=== PATIENT | female | born 1950 | race Caucasian/White ===

== ENCOUNTER → 2016-12-03 | Outpatient (CLI) | payer OTHER ==
[~2016-12-03] MED LIST: ALAVERT10 M1 PO; ALBUTEROL0.09 MG/A2 INH; ALTOCOR40 MG PO; AMOXICILLIN500 MG PO; AMOXIL500 MG PO; ANTIVERT/2525 MG PO; AUGMENTIN 875-875 MG PO; AUGMENTIN 875875 MG PO; BACTRIM DS 8001 TA1 PO; BIAXIN500 MG PO; BUPROPION HCL150 M1 PO; CALCIUM + D 6001 TA1 PO; CEFTIN250 MG PO; CELEXA20 MG PO; CIPRO500 MG PO; DELTASONE5 MG PO; DIFLUCAN150 MG PO; DOES NOT KNOW MEDS; DUONEB 3 MG/3 ML3 M1 INH; DUONEB 3 MG/3 ML3 M1 NEB; FLAGYL500 MG PO; FLEXERIL10 MG PO; HYDR25T PO; KROGER NIC21 MG/24 H T; LOVASTATIN40 MG PO; Lortab 5/500 501 TAB PO; MOTRIN600 MG PO; NEBULIZER; OMEPRAZOLE40 MG PO; OYSTER SHELL 51 EACH PO; PANTOPRAZOLE SO40 MG PO; POTASSIUM20 MEQ PO; PREDNICOT20 MG PO; PREDNISONE20 M1 PO; PREDNISONE5 MG PO; PRILOSEC20 MG PO; RESTORIL30 MG PO; SEROQUEL50 MG PO; TAB-A-VITE1 TA1 PO; TESSALON PERLE100 M1 PO; THE MEDICINE SH10 M1 PO; TRAMADOL HCL50 MG PO; VENTOLIN H0.09 MG/AC IH; VIBRAMYCIN100 MG PO; VICODIN 5/500 505 MG PO; VOLTAREN50 M1 PO; WELLBUTRIN75 MG PO; ZITHROMAX Z PA250 MG PO; ZOLPIDEM10 M1 PO
== END | disposition home or self-care (01) ==
LOC: CT 09:00
DX: R10.31 Right lower quadrant pain (principal); R10.32 Left lower quadrant pain; R11.0 Nausea; Z90.49 Acquired absence of other specified parts of digestive tract; Z90.710 Acquired absence of both cervix and uterus

== ENCOUNTER 2017-01-23 12:06 | Emergency (ER) | payer OTHER ==
[~2017-01-23] VITALS: Wt 64.9 kg
[2017-01-23 12:30] LABS: BASO # 0.1 10*3/uL (0.0-0.1); BASO % 0.9 % (0.0-1.0); EOS # 0.1 10*3/uL (0.0-0.4); EOS % 1.8 % (1.0-4.0); HEMATOCRIT 35.7 % (37.0-47.0); HEMOGLOBIN 11.7 g/dl (12.0-16.0); LYMPH # 2.1 10*3/uL (1.3-4.4); LYMPH % 26.4 % (27.0-41.0); MEAN CELL VOLUME 86.4 fl (81.0-99.0); MEAN CORPUSCULAR HGB 28.3 pg (27.0-31.0); MEAN CORPUSCULAR HGB CONC 32.8 g/dl (33.0-37.0); MEAN PLATELET VOLUME 10.3 fl (9.6-12.3); MONO # 0.8 10*3/uL (0.1-1.0); MONO % 10.4 % (3.0-9.0); NEUT # 4.7 10*3/uL (2.3-7.9); NEUT % 60.2 % (47.0-73.0); PLATELET COUNT AUTOMATED 347 10*3/uL (130-400); RED BLOOD COUNT 4.13 10*6/uL (4.10-5.10); RED CELL DISTRI WIDTH 14.4 % (0-14.5); WHITE BLOOD COUNT 7.8 10*3/uL (4.8-10.8)
[2017-01-23] MEDS ORDERED: NATURE'S BLEND F1 MG PO (12:43)
[2017-01-23] MEDS ORDERED: SYMBICORT1 AER INH (12:45)
[2017-01-23 12:46] LABS: BUN 6 mg/dl (7-24); CARBON DIOXIDE 23 mmol/L (21-32); CHLORIDE 108 mmol/L (98-107); EST GLOM FILT AFRICAN AMERICAN > 60 ml/min; GLUCOSE 83 mg/dL (65-99); POTASSIUM 4.4 mmol/L (3.5-5.1); SODIUM 145 mmol/L (136-145); TROPONIN I < 0.015 ng/ml (<0.045)
[2017-01-23] MEDS ORDERED: PREDNISONE20 M1 PO (14:23)
[2017-01-23] MEDS ORDERED: VIBRAMYCIN100 MG PO (14:23)
== END 2017-01-23 15:04 | disposition home or self-care (01) ==
LOC: ED 12:06
PROVIDERS: Emergency Medicine
DX: J44.1 Chronic obstructive pulmonary disease with (acute) exacerbation (principal); I10 Essential (primary) hypertension; E78.00 Pure hypercholesterolemia, unspecified; Z90.710 Acquired absence of both cervix and uterus; Z98.890 Other specified postprocedural states; Z79.899 Other long term (current) drug therapy; Z88.5 Allergy status to narcotic agent; Z87.891 Personal history of nicotine dependence

== ENCOUNTER → 2017-11-03 | Day surgery (SDC) | payer OTHER ==
[~2017-11-03] VITALS: Ht 157.4 cm; Wt 61.2 kg
[~2017-11-03] MED LIST changes: +DOC-Q-LACE100 MG PO; +NATURE'S BLEND F1 MG PO; +SYMBICORT1 AER INH
--- NOTE | ~2017-11-03 | O ---
[place], [place] OPERATIVE NOTE NAME: LENO DOMINIQUE V [facility] #: [id number] UNIT #: [id number] ROOM: DOCTOR: FRANC BAXTER MD BIRTHDATE: [birth year] DOS: 11/03/2017 PREOPERATIVE DIAGNOSIS: Cataract, left eye. POSTOPERATIVE DIAGNOSIS: Cataract, left eye. OPERATION: Extracapsular cataract extraction by phacoemulsification with posterior chamber intraocular lens implantation, left eye. ANESTHESIA: Monitored standby. OPERATIVE FINDINGS AND PROCEDURE: 2% Xylocaine topical anesthetic gel was applied to the eye in the preop area. The patient was taken to the operating room and prepped and draped in the standard fashion for sterile intraocular surgery. A time out procedure was performed verifying correct patient, correct site and corrects lens with Wali Baxter M.D. The operating microscope was swung into position and the lid speculum was inserted. Using a Ingrid paracentesis blade, a paracentesis was made through clear cornea. Viscoelastic was used to fill the anterior chamber. Using a metal keratome a 2.4 mm self-sealing clear corneal cataract incision was made temporally at the limbus. Using a pre-bent 25 gauge cystotome needle, a standard continuous curvilinear capsulorrhexis was performed. The anterior capsule was removed with forceps. The lens nucleus was hydrodissected and phacoemulsified in the posterior chamber. Cortical material was removed with the irrigation aspiration hand piece and the posterior capsule was then polished with a curet under irrigation. The posterior chamber and capsular bag were filled with viscoelastic. A posterior chamber intraocular lens manufactured by: [employer], Model #[id number], and 21.5 diopters in strength were then inserted into the posterior chamber and within the capsular bag using the lens cartridge and injector system. Viscoelastic was removed using the irrigation aspiration handpiece. The anterior chamber was filled with balanced salt solution through the paracentesis. Both the paracentesis site and cataract incisions were hydrated with BSS and verified to be water-tight and self-sealing. Cefuroxime 1 mg/0.1 mL was injected into the anterior chamber through the paracentesis site. The incision checked to be water-tight using a Weck-Balbina sponge. The integrity of the cataract wound and ocular tension were checked. Lid speculum and drapes were removed. The patient was transferred from the operating room to the recovery room in satisfactory condition. [place], [place] OPERATIVE NOTE NAME: LENO DOMINIQUE V UNIT #: [id number] ROOM: DOCTOR: FRANC BAXTER MD BIRTHDATE: [birth year] FRANC BAXTER MD CM:OPRECORD:OPERATIVE NOTE [id number] FRANC BAXTER MD 11/03/17 1101 interface
[2017-11-03 08:41] VITALS: BP 166/79
[2017-11-03 10:41] VITALS: BP 142/94
[2017-11-03 10:56] VITALS: BP 142/81
[2017-11-03 11:11] VITALS: BP 150/82
== END ==
LOC: SDC 10-29 08:00
DX: H26.9 Unspecified cataract (principal); F41.9 Anxiety disorder, unspecified; K21.9 Gastro-esophageal reflux disease without esophagitis; J44.9 Chronic obstructive pulmonary disease, unspecified; F32.9 Major depressive disorder, single episode, unspecified; M81.0 Age-related osteoporosis without current pathological fracture; I10 Essential (primary) hypertension; E78.00 Pure hypercholesterolemia, unspecified; Z88.5 Allergy status to narcotic agent; Z90.710 Acquired absence of both cervix and uterus; Z87.891 Personal history of nicotine dependence

== ENCOUNTER → 2017-11-24 | Day surgery (SDC) | payer OTHER ==
[~2017-11-24] VITALS: Ht 157.4 cm; Wt 69.4 kg
--- NOTE | ~2017-11-24 | O ---
[place], [place] OPERATIVE NOTE NAME: LENO DOMINIQUE V [facility] #: [id number] UNIT #: [id number] ROOM: DOCTOR: FRANC BAXTER MD BIRTHDATE: [birth year] DOS: 11/24/2017 PREOPERATIVE DIAGNOSIS: Cataract, right eye. POSTOPERATIVE DIAGNOSIS: Cataract, right eye. OPERATION: Extracapsular cataract extraction by phacoemulsification with posterior chamber intraocular lens implantation, right eye. ANESTHESIA: Monitored standby. OPERATIVE FINDINGS AND PROCEDURE: 2% Xylocaine topical anesthetic gel was applied to the eye in the preop area. The patient was taken to the operating room and prepped and draped in the standard fashion for sterile intraocular surgery. A time out procedure was performed verifying correct patient, correct site and corrects lens with Wali Baxter M.D. The operating microscope was swung into position and the lid speculum was inserted. Using a Ingrid paracentesis blade, a paracentesis was made through clear cornea. Viscoelastic was used to fill the anterior chamber. Using a metal keratome a 2.4 mm self-sealing clear corneal cataract incision was made temporally at the limbus. Using a pre-bent 25 gauge cystotome needle, a standard continuous curvilinear capsulorrhexis was performed. The anterior capsule was removed with forceps. The lens nucleus was hydrodissected and phacoemulsified in the posterior chamber. Cortical material was removed with the irrigation aspiration hand piece and the posterior capsule was then polished with a curet under irrigation. The posterior chamber and capsular bag were filled with viscoelastic. A posterior chamber intraocular lens manufactured by: [employer], Model #[id number], and 21.0 diopters in strength were then inserted into the posterior chamber and within the capsular bag using the lens cartridge and injector system. Viscoelastic was removed using the irrigation aspiration handpiece. The anterior chamber was filled with balanced salt solution through the paracentesis. Both the paracentesis site and cataract incisions were hydrated with BSS and verified to be water-tight and self-sealing. Cefuroxime 1 mg/0.1 mL was injected into the anterior chamber through the paracentesis site. The incision checked to be water-tight using a Weck-Balbina sponge. The integrity of the cataract wound and ocular tension were checked. Lid speculum and drapes were removed. The patient was transferred from the operating room to the recovery room in satisfactory condition. [place], [place] OPERATIVE NOTE NAME: LENO DOMINIQUE V UNIT #: [id number] ROOM: DOCTOR: FRANC BAXTER MD BIRTHDATE: [birth year] FRANC BAXTER MD CM:OPRECORD:OPERATIVE NOTE 1422 1800 FRANC BAXTER MD 11/24/17 1758 interface
[2017-11-24 14:18] VITALS: BP 163/56
[2017-11-24 14:32] VITALS: BP 142/73
[2017-11-24 14:47] VITALS: BP 163/70
== END | disposition home or self-care (01) ==
LOC: SDC 11-18 13:15
DX: H25.811 Combined forms of age-related cataract, right eye (principal); I10 Essential (primary) hypertension; J44.9 Chronic obstructive pulmonary disease, unspecified; K21.9 Gastro-esophageal reflux disease without esophagitis; F41.9 Anxiety disorder, unspecified; Z87.891 Personal history of nicotine dependence; F32.9 Major depressive disorder, single episode, unspecified; Z90.710 Acquired absence of both cervix and uterus; Z96.641 Presence of right artificial hip joint; Z88.5 Allergy status to narcotic agent; Z98.890 Other specified postprocedural states

== ENCOUNTER 2018-02-27 07:52 | Inpatient (IN) | payer OTHER ==
[2018-02-27] VITALS (7 sets, daily range): BP systolic 130–152; BP diastolic 50–78
[~2018-02-27] VITALS: Ht 154.9 cm; Wt 71.8 kg
--- NOTE | ~2018-02-27 | WRIGHTHP ---
[place], [place] PATIENT HISTORY AND PHYSICAL EXAM NAME: LENO DOMINIQUE V [facility] #: [id number] UNIT #: [id number] ROOM: 425 DOCTOR: RUY SAENZ MD BIRTHDATE: [birth year] DOS: 02/27/2018 HISTORY OF PRESENT ILLNESS: The patient is 67 years old. The patient is very well known to us, comes in with complaints of left-sided chest pain and shortness of breath. The patient denies having any fever, chills, has had cough which is productive of scant amounts of sputum. Does not have any abdominal pain, nausea, any emesis. PAST MEDICAL HISTORY: Significant for: 1. COPD with history of hospitalization for exacerbation last in 2016 with pneumonia and respiratory failure. 2. History of nicotine abuse, but has not smoked for a year now. 3. Benign hypertension. 4. Gastroesophageal reflux disease. 5. Mixed hyperlipidemia. 6. Major depression. 7. History of renal calculus. MEDICATIONS: She is on are breathing treatments, bupropion, calcium, Colace, hydrochlorothiazide, loratadine, lovastatin, Protonix, potassium, Seroquel. SOCIAL HISTORY: History of heavy smoking, she has not smoked for about a year. PHYSICAL EXAMINATION: VITAL SIGNS: Blood pressure is 134/70, pulse of 98, respirations 20, temperature 97.9. LUNGS: Diminished breath sounds. HEART: Regular. ABDOMEN: Obese, soft. EXTREMITIES: Without any edema. ASSESSMENT AND PLAN: 1. Precordial pain, ruled out for myocardial infarction. Echocardiogram. Cardiology consultation will be obtained. The patient has refused to do a stress test in the past. 2. Acute exacerbation of chronic obstructive pulmonary disease, on IV steroids and antibiotics. 3. Benign hypertension, controlled. Echocardiogram is ordered. Check LV function. [place], [place] PATIENT HISTORY AND PHYSICAL EXAM NAME: LENO DOMINIQUE V [facility] #: [id number] UNIT #: [id number] ROOM: 425 DOCTOR: RUY SAENZ MD BIRTHDATE: [birth year] RUY SAENZ MD CM:HISPHYS:PATIENT HISTORY AND PHYSICAL EXAMINATION 0908 [id number] RUY SAENZ MD 02/28/18 1026 interface
--- NOTE | ~2018-02-27 | CON ---
[place], [place] REPORT OF CONSULTATION [id number] UN[facility] #: [id number] ROOM: 425 DOCTOR: AMI ENGEL MD BIRTHDATE: [birth year] DOS: 02/28/2018 HISTORY OF PRESENT ILLNESS: This is a 67-year-old -[place] woman with a history of essential hypertension, COPD, morbid obesity. She has GERD and dyslipidemia and has had major depression as well as renal stones. She quit smoking many years ago and some family members do have coronary artery disease, but she was not able to give me details. She woke up yesterday morning with the left pectoralis, left shoulder and proximal left arm pain that was very annoying. She could not handle it and she came to the Emergency Department by 12:00 i.e., 6 hours after she woke up, the pain pretty much eased up and disappeared. She has not had such pains previously. There was no accompanying nausea, sweating, shortness of breath, palpitation, dizziness or loss of consciousness. She had moved 50 bottles of water using her left hand the day before. She has not had such symptoms previously and is a reasonably active lady. No PND, orthopnea, or swelling of the lower extremities, but she does have exertional shortness of breath. HOME MEDICATIONS: Include Seroquel, bupropion, loratadine, hydrochlorothiazide, Protonix, potassium supplement, calcium and Colace. PHYSICAL EXAMINATION: GENERAL: The patient who is very pleasant, alert. She is comfortable. Her grandsons are in the room. Her complexion is fine. VITAL SIGNS: Pulse is regular at 84 beats per minute, blood pressure 134/70. NECK: JVP is normal. AJR is negative. There is no carotid bruit. HEART: There is no cardiomegaly. Auscultation of the heart reveals no murmurs, rubs, or extra heart sounds, good pedal pulses and no edema in the lower extremities. RESPIRATORY: She is not tachypneic. Percussion note is normal. Auscultation reveals a mildly reduced breath sounds with some rhonchi, more so in the left lower zone. ECGs have shown normal sinus rhythm and a normal pattern. Troponin I levels are also normal. IMPRESSION: She woke up with acute left shoulder and arm and left pectoralis area pain. I think this was probably muscular from excessive use from the day before. She no longer has the symptoms that she has walked in the room without any symptoms. From cardiac standpoint, she may be discharged home. Because of the risk factors, please consider doing Lexiscan or exercise stress Cardiolite as outpatient. I thank you on behalf of Dr. Arndt for this consult. [place], [place] REPORT OF CONSULTATION NAME: TRIPLENO V UNIT #: [id number] ROOM: 425 DOCTOR: TORO MILLER,AMI BIRTHDATE: [birth year] AMI ENGEL MD CM:CONSTR:REPORT OF CONSULTATION 1132 02/28/18 2244 interface
--- NOTE | ~2018-02-27 | PR ---
[place], [place] PROGRESS NOTE NAME: LENO DOMINIQUE V [facility] #: [id number] UNIT #: [id number] ROOM: 425 DOCTOR: RUY SAENZ MD BIRTHDATE: [birth year] DOS: SUBJECTIVE: The patient is doing fine, complaints this morning. OBJECTIVE: VITAL SIGNS: Graphic trend shows blood pressure 136/67, pulse of 89, respirations 16, temperature 97.9. LUNGS: Diminished breath sounds, clear except for a few wheezes here and there, but overall is much improved since yesterday. HEART: Regular. ABDOMEN: Obese, soft. EXTREMITIES: Without any edema. ASSESSMENT AND PLAN: 1. Acute exacerbation of chronic obstructive pulmonary disease, improving. 2. Precordial chest pain with the echocardiogram showing normal LV function. She ruled out for OK and did undergo a stress test today that comes back normal, the patient should be able to go home today. We will start discharge planning. RUY SAENZ MD CM:PNTRANS 0842 [id number] RUY SAENZ MD 03/01/18 1420 interface
--- NOTE | ~2018-02-27 | DS ---
[place], [place] DISCHARGE SUMMARY NAME: LENO DOMINIQUE V [facility] #: [id number] UNIT #: [id number] ROOM: 425 DOCTOR: RUY SAENZ MD BIRTHDATE: [birth year] DOS: 03/01/2018 DIAGNOSES: 1. Precordial chest pain. 2. Acute exacerbation of chronic obstructive pulmonary disease. 3. Benign hypertension. HOSPITAL COURSE: This patient is very well known to us, comes in with complaints of shortness of breath and chest pain for the last few days after being evaluated in the ER. She was admitted. After admission, AK protocol was done, which came back negative. Cardiology consultation was obtained. The patient had an echocardiogram and a stress test was performed. The stress test came back negative. The patient also was placed on steroids and antibiotics for acute exacerbation of COPD. The patient improved and was no longer having any shortness of breath or chest pain. Echocardiogram showed normal LV function and stress test did not show any perfusion defects, so the patient was discharged home to be followed up as an outpatient on tapering dose of steroids and antibiotics. RUY SAENZ MD CM:HERSON 0729 [id number] RUY SAENZ MD 03/25/18 1357 interface
--- NOTE | ~2018-02-27 | ST ---
[place], [place] EXERCISE STRESS TEST REPORT NAME: LENO DOMINIQUE V UNIT #: [id number] ROOM: 425 DOCTOR: ANDRE JOHNSON MD BIRTHDATE: [birth year] DOS: 03/01/2018 LEXISCAN PORTION OF THE LEXISCAN CARDIOLITE Baseline cardiogram, sinus rhythm with nonspecific ST-T changes, 0.4 mg Lexiscan, duration of 10 seconds. With Lexiscan, no new EKG changes. No chest discomfort. Blood pressure and heart rate responses normal. Nuclear images will be reported separately. ANDRE JOHNSON MD CM:STRESS:EXERCISE STRESS TEST REPORT 0704 1113 ANDRE JOHNSON MD
[2018-02-27 08:09] LABS: BASO # 0.1 10*3/uL (0.0-0.1); BASO % 0.6 % (0.0-1.0); EOS # 0.1 10*3/uL (0.0-0.4); EOS % 1.3 % (1.0-4.0); HEMATOCRIT 36.6 % (37.0-47.0); HEMOGLOBIN 11.8 g/dl (12.0-16.0); LYMPH # 1.6 10*3/uL (1.3-4.4); LYMPH % 15.7 % (27.0-41.0); MEAN CELL VOLUME 91.5 fl (81.0-99.0); MEAN CORPUSCULAR HGB 29.5 pg (27.0-31.0); MEAN CORPUSCULAR HGB CONC 32.2 g/dl (33.0-37.0); MEAN PLATELET VOLUME 10.1 fl (9.6-12.3); MONO # 0.9 10*3/uL (0.1-1.0); MONO % 8.7 % (3.0-9.0); NEUT # 7.4 10*3/uL (2.3-7.9); NEUT % 73.3 % (47.0-73.0); PLATELET COUNT AUTOMATED 302 10*3/uL (130-400); RED CELL DISTRI WIDTH 13.2 % (0-14.5); WHITE BLOOD COUNT 10.1 10*3/uL (4.8-10.8)
[2018-02-27] MEDS ORDERED: LOVASTATIN40 MG PO (08:14)
[2018-02-27] MEDS ORDERED: HYDR25T PO (08:14)
[2018-02-27] MEDS ORDERED: SEROQUEL50 MG PO (08:14)
[2018-02-27] MEDS ORDERED: POTASSIUM CHLO20 MEQ PO (08:14)
[2018-02-27] MEDS ORDERED: BUPROPION HCL300 MG PO (08:15)
[2018-02-27] MEDS ORDERED: OYSTER SHELL 51 EACH PO (08:16)
[2018-02-27] MEDS ORDERED: THE MEDICINE SH PO (08:17)
[2018-02-27] MEDS ORDERED: SYMB80 INH (08:17)
[2018-02-27 08:18] LABS: ACT PARTIAL THROMBO TIME 22.5 SECONDS (20.8-31.5); INTERNATIONAL NORM RATIO 0.9 (2.0-3.5)
[2018-02-27] MEDS ORDERED: DOC-Q-LACE100 MG PO (08:18)
[2018-02-27] MEDS ORDERED: PROTONIX40 MG PO (08:18)
[2018-02-27] MEDS ORDERED: DUONEB 3 MG/3 ML3 M1 INH (08:19)
[2018-02-27 08:25] LABS: ALBUMIN 3.7 gm/dl (3.1-4.5); ALKALINE PHOSPHATASE 78 U/L (45-117); BUN 12 mg/dl (7-24); CHLORIDE 104 mmol/L (98-107); CREATININE 1.09 mg/dL (0.55-1.02); POTASSIUM 3.9 mmol/L (3.5-5.1); SGOT/AST 6 IU/L (3-35); SGPT/ALT 16 U/L (12-78); SODIUM 140 mmol/L (136-145); TOTAL PROTEIN 7.3 gm/dL (6.4-8.2)
[2018-02-27 08:30] LABS: TROPONIN I < 0.015 ng/ml (<0.045)
[2018-02-28] VITALS: BP 125/50
[2018-02-28 08:00] VITALS: BP 134/70
[2018-02-28 12:00] VITALS: BP 128/64
[2018-02-28 16:00] VITALS: BP 134/60
[2018-02-28 20:00] VITALS: BP 122/90
[2018-03-01] VITALS: BP 136/67
[2018-03-01 08:00] VITALS: BP 126/71
[2018-03-01] MEDS ORDERED: CIPRO500 MG PO (08:43)
[2018-03-01] MEDS ORDERED: PREDNISONE5 MG PO (08:43)
[2018-03-01 12:00] VITALS: BP 130/60
== END 2018-03-01 15:47 | disposition home or self-care (01) | DRG 192 ==
LOC: ED 07:52 → EDHOLD 08:41 → 4E 08:41
PROVIDERS: Emergency Medicine
PROC: 4A02XM4 Measurement of Cardiac Total Activity, External Approach (ICD-10-PCS; principal; 2018-03-01)
PROC: 3E073KZ Introduction of Other Diagnostic Substance into Coronary Artery, Percutaneous Approach (ICD-10-PCS; 2018-03-01)
DX: J44.1 Chronic obstructive pulmonary disease with (acute) exacerbation (principal); L89.212 Pressure ulcer of right hip, stage 2; R07.89 Other chest pain; I10 Essential (primary) hypertension; K21.9 Gastro-esophageal reflux disease without esophagitis; E78.2 Mixed hyperlipidemia; F32.9 Major depressive disorder, single episode, unspecified; E78.00 Pure hypercholesterolemia, unspecified; Z88.5 Allergy status to narcotic agent; Z79.899 Other long term (current) drug therapy; Z90.710 Acquired absence of both cervix and uterus; Z98.41 Cataract extraction status, right eye; Z87.442 Personal history of urinary calculi; Z87.891 Personal history of nicotine dependence

== ENCOUNTER → 2018-04-28 | Outpatient (CLI) | payer OTHER ==
[~2018-04-28] MED LIST changes: +BUPROPION HCL300 MG PO; +POTASSIUM CHLO20 MEQ PO; +PROTONIX40 MG PO; +SYMB80 INH; +THE MEDICINE SH PO
== END | disposition home or self-care (01) ==
LOC: US 09:41
DX: Z12.31 Encounter for screening mammogram for malignant neoplasm of breast (principal); N28.89 Other specified disorders of kidney and ureter; G24.9 Dystonia, unspecified; Z90.49 Acquired absence of other specified parts of digestive tract

== ENCOUNTER → 2018-05-25 | Day surgery (SDC) | payer OTHER ==
--- NOTE | ~2018-05-25 | O ---
[place], [place] OPERATIVE NOTE NAME: LENO DOMINIQUE V UNIT #: [id number] ROOM: DOCTOR: ROSE MARIE ENGLISH MD BIRTHDATE: [birth year] DOS: 05/25/2018 INDICATIONS: This is a 67-year-old patient with chief complaint of abdominal pain, undergoing investigation. PAST MEDICAL HISTORY: Depression, hypercholesterolemia, gastritis, and hypertension. PAST SURGICAL HISTORY: Mesh, D and C, right hip; and hysterectomy. ALLERGIES: To no known medications. SOCIAL HISTORY: She smoked up to 4 months ago, stopped alcohol one year ago, which was a 6 pack a day. FAMILY HISTORY: Noncontributory. PROCEDURE: Today's procedure part of investigation is panendoscopy plus biopsy. PREMEDICATION: Propofol. SCOPE: Olympus forward-viewing gastroscope Q10 video. REPORT: After putting the patient in left lateral position and application of lubricant to the scope, the scope was introduced. Thereafter, under direct visualization, advanced through the length of esophagus without difficulty. Hiatal hernia was appreciated, which is about 2 cm. Gastritis was noticed. Antral biopsy obtained. Duodenal bulb, second and third part within normal limits. Photographic series of the antrum obtained as well as hiatal hernia. GI reflexion of the scope reveals cardia to be benign. Air was suctioned out. The patient was extubated and tolerated the procedure well. IMPRESSION AND PLAN: Hiatal hernia, gastritis secondary to multiple medications including prednisone. On the other hand, the patient is already on Protonix. I have advised her to use Gaviscon 1 tablet at bedtime and elevation of the head of the bed. I have reviewed the CT scan of the abdomen and pelvis, which belongs to 2017 and multi-renal lithiasis is of concern. Also, she has a ventral hernia on the physical examination, which does not require further therapy or repair, but the renal lithiasis issues has to be deferred to Urology service. I thank you very much indeed for your kind referral. [place], [place] OPERATIVE NOTE NAME: LENO DOMINIQUE V UNIT #: [id number] ROOM: DOCTOR: ROSE MARIE ENGLISH MD BIRTHDATE: [birth year] ROSE MARIE ENGLISH MD CM:AMANDAORD:OPERATIVE NOTE 0848 5 ROSE MARIE ENGLISH MD 05/25/18 0904 interface
[2018-05-25 08:15] VITALS: BP 145/76
[2018-05-25 08:45] VITALS: BP 157/125
[2018-05-25 09:00] VITALS: BP 148/76
[2018-05-25 09:22] VITALS: BP 141/68
[2018-05-25 09:24] VITALS: BP 138/68
== END | disposition home or self-care (01) ==
LOC: SDC 05-24 08:00
DX: K29.50 Unspecified chronic gastritis without bleeding (principal); K44.9 Diaphragmatic hernia without obstruction or gangrene; I10 Essential (primary) hypertension; E78.5 Hyperlipidemia, unspecified; K21.9 Gastro-esophageal reflux disease without esophagitis; M81.0 Age-related osteoporosis without current pathological fracture; H40.9 Unspecified glaucoma; J44.9 Chronic obstructive pulmonary disease, unspecified; F41.8 Other specified anxiety disorders; Z90.710 Acquired absence of both cervix and uterus; Z88.5 Allergy status to narcotic agent; Z98.41 Cataract extraction status, right eye; Z87.891 Personal history of nicotine dependence; Z87.11 Personal history of peptic ulcer disease; Z79.899 Other long term (current) drug therapy; Z96.641 Presence of right artificial hip joint

== ENCOUNTER 2018-08-15 16:28 | Inpatient (IN) | payer OTHER ==
[~2018-08-15] VITALS: Ht 157.5 cm; Wt 66.9 kg
--- NOTE | ~2018-08-15 | WRIGHTHP ---
[place], [place] PATIENT HISTORY AND PHYSICAL EXAM NAME: LENO DOMINIQUE V [facility] #: [id number] UNIT #: [id number] ROOM: 404 DOCTOR: RUY SAENZ MD BIRTHDATE: [birth year] DOS: HISTORY OF PRESENT ILLNESS: This patient is very well known to us, 67 years old who comes in with complaints of chest pain and abdominal pain. The patient states that she has had this cold-like sensation across the chest for the last couple of days and this appeared to be slightly heavy in nature and so decided to come into the Emergency Room. She also has not had a bowel movement for days and has been constipated and had some abdominal discomfort also. She denies having any fever, chills, cough, shortness of breath. Does not have any urinary symptoms. No diarrhea. PAST MEDICAL HISTORY: Significant for: 1. Chest pain with hospitalization earlier this year with negative stress test. 2. Benign hypertension. 3. History of nicotine abuse. 4. Mixed hyperlipidemia. 5. Chronic obstructive pulmonary disease. 6. Gastroesophageal reflux disease. 7. Major depression. MEDICATIONS: She is currently on are Symbicort 80, breathing treatments with DuoNeb q. 4, bupropion 300 mg daily, calcium 500 t.i.d., Colace 100 b.i.d., hydrochlorothiazide 25 daily, loratadine 10 daily, lovastatin 40 daily, Protonix 40 daily, potassium 20 daily. SOCIAL HISTORY: History of smoking, quit smoking about 2 years ago. Denies using any alcohol. Lives at home. FAMILY HISTORY: Significant for her brother who just after an [place]. PHYSICAL EXAMINATION: GENERAL: She is awake and alert and oriented, in no major distress this morning. VITAL SIGNS: Graphic trend shows pressure 140/70, pulse of 76, respirations 14, afebrile. LUNGS: Clear. HEART: Regular. ABDOMEN: Obese, soft, nontender. EXTREMITIES: Without any edema. LABORATORY DATA: EKG shows nonspecific ST-T wave changes. 3 sets of troponins done so far have come back negative. ASSESSMENT AND PLAN: 1. Precordial chest pain in a patient with multiple risk factors, which need to be further evaluated. She had a negative stress test early this year, so we will schedule her for a cardiac catheterization. Dr. Arndt has been consulted and the patient has agreed. 2. Abdominal discomfort with constipation has resolved after the patient was [place], [place] PATIENT HISTORY AND PHYSICAL EXAM NAME: LENO DOMINIQUE V [facility] #: [id number] UNIT #: [id number] ROOM: [facility] DOCTOR: RUY SAENZ MD BIRTHDATE: [birth year] started on Colace and MiraLax. She had a bowel movement this morning. No further workup will be done for that. 3. Benign hypertension, controlled. 4. Mixed hyperlipidemia, on medications. We will continue same. RUY SAENZ MD CM:HISPHYS:PATIENT HISTORY AND PHYSICAL EXAMINATION 6 7 RUY SAENZ MD 08/16/18847 interface
--- NOTE | ~2018-08-15 | CON ---
[place], [place] REPORT OF CONSULTATION [id number] #: [id number] ROOM: 404 DOCTOR: ANDRE JOHNSON MD BIRTHDATE: [birth year] DOS: 08/16/2018 REASON FOR CONSULTATION: Chest discomfort. HISTORY OF PRESENT ILLNESS: A 67-year-old female who had done a stress test in February was normal without any ischemia, normal ejection fraction, admitted to the Emergency Department. She had not had a bowel movement for quite some time. Had some chest discomfort 12/28. No acute EKG changes suggestion of myocardial injury or infarction. As mentioned, she had a lot of GI problems. PAST MEDICAL HISTORY: Hypertension and hyperlipidemia. MEDICATIONS: Hydrochlorothiazide, lovastatin, and pantoprazole. ALLERGIES: CODEINE. MEDICATIONS: She is on prednisone and ciprofloxacin. PAST SURGICAL HISTORY: Hysterectomy, cataract surgery and hernia repair. SOCIAL HISTORY: Denies any alcohol or tobacco abuse. REVIEW OF SYSTEMS: A 6-8 systems reviewed. She did have some chest discomfort, did have nausea and abdominal bloating. No shortness of breath. PHYSICAL EXAMINATION: GENERAL: The patient is alert, oriented x 3. HEENT: Unremarkable. NECK: Supple, no JVD. LUNGS: Diminished breath sound. HEART: Sounds are regular. ABDOMEN: Soft, nontender. NEUROLOGIC: Stable. IMAGING STUDIES: EKG shows sinus rhythm with nonspecific ST-T changes. LABORATORY DATA: Shows troponins have been negative. Electrolytes are normal. Potassium was significantly low at 2.8, which was supplemented. Sodium 135, creatinine is 0.9, hemoglobin 11.8, hematocrit 34.9. IMPRESSION: The patient with atypical chest discomfort, chest pressure, hypertension, dyslipidemia. RECOMMENDATIONS: Agree with the present medication. Recent stress test was normal, maximize the medications. Add isosorbide to the present medicine. If she continues to be symptomatic, we have no other choice other than proceeding with a catheterization. [place], [place] REPORT OF CONSULTATION [facility] [id number] #: [id number] ROOM: 404 DOCTOR: ANDRE JOHNSON MD BIRTHDATE: [birth year] ANDRE JOHNSON MD CM:CONSTR:REPORT OF CONSULTATION 0711 08/16/18 0753 interface
--- NOTE | ~2018-08-15 | EKG ---
[place], [place] ELECTROCARDIOGRAM REPORT NAME: LENO DOMINIQUE V UNIT #: [id number] ROOM: 404 DOCTOR: KIRK DRAFT REPORT BIRTHDATE: [birth year] [facility] Test Date: 2018-08-15 Test Time: 17:35:30 Pat Name: LENO DOMINIQUE Department: Room: 404 Gender: F Chief Radiation Therapist: Rhoda Butts : 1950 Requested By: MICHAEL BRAVO Order Number: [id number] Reading MD: Martinez Ambriz MD Measurements Intervals Dearing Rate: 74 P: 63 SC: 169 QRS: 36 QRSD: 94 T: 41 QT: 406 QTc: 451 Interpretive Statements Sinus rhythm Minimal ST depression, anterior leads Electronically Signed On 08-18-2018 3:12:43 PST by Martinez Ambriz MD CM:EKGRPT:ELECTROCARDIOGRAM REPORT 1735 0312 MICHAEL BRADLEY DRAFT REPORT MICHAEL DSOUZA
[2018-08-15 16:29] VITALS: BP 127/52
[2018-08-15 17:36] LABS: BILIRUBIN NEGATIVE (NEGATIVE); BLOOD NEGATIVE (NEGATIVE); CLARITY CLEAR (CLEAR); COLOR YELLOW (YELLOW); GLUCOSE NEGATIVE (NEGATIVE); KETONE NEGATIVE (NEGATIVE); LEUKO ESTERASE NEGATIVE (NEGATIVE); NITRITE NEGATIVE (NEGATIVE); UROBILINOGEN 0.2 E.U./dl (0.2-1.0)
[2018-08-15 17:40] LABS: BASO # 0.1 10*3/uL (0.0-0.1); BASO % 0.7 % (0.0-1.0); EOS # 0.1 10*3/uL (0.0-0.4); EOS % 1.1 % (1.0-4.0); HEMATOCRIT 34.4 % (37.0-47.0); HEMOGLOBIN 11.8 g/dl (12.0-16.0); LYMPH # 2.2 10*3/uL (1.3-4.4); LYMPH % 24.6 % (27.0-41.0); MEAN CELL VOLUME 84.1 fl (81.0-99.0); MEAN CORPUSCULAR HGB 28.9 pg (27.0-31.0); MEAN CORPUSCULAR HGB CONC 34.3 g/dl (33.0-37.0); MEAN PLATELET VOLUME 9.9 fl (9.6-12.3); MONO # 0.7 10*3/uL (0.1-1.0); MONO % 7.5 % (3.0-9.0); NEUT # 5.9 10*3/uL (2.3-7.9); NEUT % 65.8 % (47.0-73.0); PLATELET COUNT AUTOMATED 312 10*3/uL (130-400); RED BLOOD COUNT 4.09 10*6/uL (4.10-5.10); RED CELL DISTRI WIDTH 14.1 % (0-14.5)
[2018-08-15 17:51] LABS: ACT PARTIAL THROMBO TIME 22.9 SECONDS (20.8-31.5)
[2018-08-15 17:52] LABS: RBC 0-2 rbc/hpf (0-2)
[2018-08-15 17:55] LABS: ALBUMIN 3.6 gm/dl (3.1-4.5); ALKALINE PHOSPHATASE 74 U/L (45-117); BUN 11 mg/dl (7-24); CHLORIDE 99 mmol/L (98-107); CREATININE 0.96 mg/dL (0.55-1.02); LIPASE 99 U/L (73-393); POTASSIUM 2.8 mmol/L (3.5-5.1); SGOT/AST 12 IU/L (3-35); SGPT/ALT 13 U/L (12-78); SODIUM 135 mmol/L (136-145); TOTAL PROTEIN 7.2 gm/dL (6.4-8.2); TROPONIN I < 0.015 ng/ml (<0.045)
[2018-08-15 18:45] VITALS: BP 140/78
[2018-08-15 19:29] VITALS: BP 132/70
[2018-08-15 19:57] VITALS: BP 128/71
[2018-08-15 20:12] VITALS: BP 93/65
[2018-08-16] VITALS: BP 120/66
[2018-08-16 08:00] VITALS: BP 112/80
[2018-08-16 09:30] LABS: BUN 9 mg/dl (7-24); CHLORIDE 109 mmol/L (98-107); CREATININE 0.82 mg/dL (0.55-1.02); POTASSIUM 3.4 mmol/L (3.5-5.1); SODIUM 142 mmol/L (136-145)
[2018-08-16 12:00] VITALS: BP 109/82
[2018-08-16 16:00] VITALS: BP 109/72
[2018-08-16 20:00] VITALS: BP 141/64
[2018-08-17] VITALS: BP 116/46
[2018-08-17 04:00] VITALS: BP 131/67
== END 2018-08-17 05:50 | disposition other institution (70) | DRG 641 ==
LOC: ED 16:28 → 4E 18:53 → EDHOLD 18:53 → 4E 19:49
PROVIDERS: Internal Medicine; Physician Assistant
DX: E87.1 Hypo-osmolality and hyponatremia (principal); I25.10 Atherosclerotic heart disease of native coronary artery without angina pectoris; K59.00 Constipation, unspecified; I10 Essential (primary) hypertension; E78.2 Mixed hyperlipidemia; J44.9 Chronic obstructive pulmonary disease, unspecified; K21.9 Gastro-esophageal reflux disease without esophagitis; F32.9 Major depressive disorder, single episode, unspecified; R07.89 Other chest pain; E87.6 Hypokalemia; Z87.891 Personal history of nicotine dependence; Z88.5 Allergy status to narcotic agent; Z90.710 Acquired absence of both cervix and uterus

== ENCOUNTER 2018-10-24 14:06 | Emergency (ER) | payer OTHER ==
[~2018-10-24] VITALS: Ht 157.4 cm; Wt 64.9 kg
== END 2018-10-24 17:12 | disposition home or self-care (01) ==
LOC: ED 14:06
DX: S20.212A Contusion of left front wall of thorax, initial encounter (principal); Z88.6 Allergy status to analgesic agent; Z79.899 Other long term (current) drug therapy; W01.198A Fall on same level from slipping, tripping and stumbling with subsequent striking against other object, initial encounter; Y93.89 Activity, other specified; Y92.89 Other specified places as the place of occurrence of the external cause; Y99.8 Other external cause status

== ENCOUNTER → 2019-02-01 | Outpatient (CLI) | payer OTHER ==
[~2019-02-01] MED LIST changes: +ASPIR LOW81 MG PO; +ASPIRIN325 M2 PO; +BUDEPRION XL150 MG PO; +LOVENOX30 MG/0.3 SC; +VITAMIN D32000 UNIT PO
== END | disposition home or self-care (01) ==
LOC: ORTHO 00:37
DX: M17.11 Unilateral primary osteoarthritis, right knee (principal)

== ENCOUNTER → 2019-03-27 | Outpatient (CLI) | payer OTHER | END | disposition home or self-care (01) | LOC: CT 13:00 | DX: M23.306 Other meniscus derangements, unspecified meniscus, right knee (principal) ==

== ENCOUNTER 2019-06-07 08:35 | Emergency (ER) | payer OTHER ==
[~2019-06-07] VITALS: Ht 157.4 cm; Wt 63.0 kg
== END 2019-06-07 12:03 | disposition home or self-care (01) ==
LOC: ED 08:35
DX: S80.01XA Contusion of right knee, initial encounter (principal); J44.9 Chronic obstructive pulmonary disease, unspecified; Z88.5 Allergy status to narcotic agent; Z79.899 Other long term (current) drug therapy; Z79.82 Long term (current) use of aspirin; Z90.710 Acquired absence of both cervix and uterus; W01.0XXA Fall on same level from slipping, tripping and stumbling without subsequent striking against object, initial encounter; Y93.89 Activity, other specified; Y92.89 Other specified places as the place of occurrence of the external cause; Y99.8 Other external cause status

== ENCOUNTER → 2019-07-05 | Outpatient (CLI) | payer OTHER | LOC: ORTHO 01:36 | DX: M25.461 Effusion, right knee (principal); Z96.651 Presence of right artificial knee joint ==

== ENCOUNTER → 2020-02-21 | Outpatient (CLI) | payer OTHER ==
[2020-02-21 14:45] LABS: BASO # 0.1 10*3/uL (0.0-0.1); BASO % 0.8 % (0.0-1.0); EOS # 0.1 10*3/uL (0.0-0.4); EOS % 1.4 % (1.0-4.0); HEMATOCRIT 33.3 % (37.0-47.0); LYMPH # 1.8 10*3/uL (1.3-4.4); LYMPH % 24.5 % (27.0-41.0); MEAN CORPUSCULAR HGB 29.2 pg (27.0-31.0); MEAN CORPUSCULAR HGB CONC 32.4 g/dl (33.0-37.0); MEAN PLATELET VOLUME 9.2 fl (9.6-12.3); MONO # 0.7 10*3/uL (0.1-1.0); MONO % 9.7 % (3.0-9.0); NEUT # 4.6 10*3/uL (2.3-7.9); NEUT % 63.2 % (47.0-73.0); PLATELET COUNT AUTOMATED 358 10*3/uL (130-400); WHITE BLOOD COUNT 7.2 10*3/uL (4.8-10.8)
[2020-02-21 15:20] LABS: ALBUMIN 3.6 gm/dl (3.1-4.5); BUN 17 mg/dl (7-24); CHLORIDE 105 mmol/L (98-107); POTASSIUM 3.5 mmol/L (3.5-5.1); SODIUM 139 mmol/L (136-145)
[2020-02-21 15:30] LABS: ALKALINE PHOSPHATASE 77 U/L (45-117); CHOLESTEROL 180 mg/dL (<200); CREATININE 1.05 mg/dL (0.55-1.02); FREE T4 0.92 ng/dl (0.76-1.46); HDL CHOLESTEROL 79 mg/dl (40-60); LDL CHOLESTEROL 81 mg/dL (9-159); SGOT/AST 6 IU/L (3-35); SGPT/ALT 14 U/L (12-78); TOTAL PROTEIN 7.3 gm/dL (6.4-8.2); TRIGLYCERIDES 98 mg/dl (<150); VLDL CHOLESTEROL 20 mg/dL (6-40)
[2020-02-21 15:49] LABS: VITAMIN D, 25-HYDROXY 57.4 ng/mL (30-100)
== END | disposition home or self-care (01) ==
LOC: LAB 13:42 → US 14:00
PROVIDERS: Internal Medicine
DX: Z00.00 Encounter for general adult medical examination without abnormal findings (principal); Z13.220 Encounter for screening for lipoid disorders; Z13.1 Encounter for screening for diabetes mellitus; I65.23 Occlusion and stenosis of bilateral carotid arteries; I10 Essential (primary) hypertension; E55.9 Vitamin D deficiency, unspecified

== ENCOUNTER → 2020-04-01 | Outpatient (CLI) | payer OTHER ==
[2020-04-01 11:53] LABS: BUN 16 mg/dl (7-24); CHLORIDE 110 mmol/L (98-107); CREATININE 0.86 mg/dL (0.55-1.02); IRON 31 ug/dL (50-170); SODIUM 139 mmol/L (136-145)
== END | disposition home or self-care (01) ==
LOC: LAB 10:57
PROVIDERS: Internal Medicine
DX: E11.9 Type 2 diabetes mellitus without complications (principal); D50.9 Iron deficiency anemia, unspecified; I10 Essential (primary) hypertension

== ENCOUNTER → 2020-06-19 | Outpatient (CLI) | payer OTHER | END | disposition home or self-care (01) | LOC: RAD 05-29 14:00 → MAMMO 05-29 14:30 → RAD 06-05 14:00 → MAMMO 06-05 14:30 | PROVIDERS: ATTEND Internal Medicine | DX: Z12.31 Encounter for screening mammogram for malignant neoplasm of breast (principal); M85.88 Other specified disorders of bone density and structure, other site; Z78.0 Asymptomatic menopausal state ==

== ENCOUNTER → 2020-09-18 | Outpatient (CLI) | payer OTHER ==
[2020-09-18 11:11] LABS: CREATININE 0.99 mg/dL (0.55-1.02)
== END | disposition home or self-care (01) ==
LOC: LAB 10:39 → CT 11:00
PROVIDERS: Radiology Diagnostic Radiology; ATTEND Internal Medicine
DX: J98.4 Other disorders of lung (principal); I25.10 Atherosclerotic heart disease of native coronary artery without angina pectoris

== ENCOUNTER → 2020-10-10 | Outpatient (CLI) | payer OTHER ==
[2020-10-10 11:58] LABS: BASO # 0.1 10*3/uL (0.0-0.1); BASO % 0.8 % (0.0-1.0); EOS # 0.2 10*3/uL (0.0-0.4); EOS % 2.8 % (1.0-4.0); HEMATOCRIT 36.5 % (37.0-47.0); LYMPH # 1.6 10*3/uL (1.3-4.4); MEAN CELL VOLUME 92.6 fl (81.0-99.0); MEAN CORPUSCULAR HGB 29.4 pg (27.0-31.0); MEAN CORPUSCULAR HGB CONC 31.8 g/dl (33.0-37.0); MEAN PLATELET VOLUME 9.3 fl (9.6-12.3); MONO # 0.9 10*3/uL (0.1-1.0); NEUT # 4.9 10*3/uL (2.3-7.9); NEUT % 63.9 % (47.0-73.0); PLATELET COUNT AUTOMATED 362 10*3/uL (130-400); RED BLOOD COUNT 3.94 10*6/uL (4.10-5.10); RED CELL DISTRI WIDTH 12.9 % (0-14.5); WHITE BLOOD COUNT 7.7 10*3/uL (4.8-10.8)
[2020-10-10 12:29] LABS: ALBUMIN 3.6 gm/dl (3.1-4.5); ALKALINE PHOSPHATASE 82 U/L (45-117); BUN 12 mg/dl (7-24); CHLORIDE 108 mmol/L (98-107); CHOLESTEROL 229 mg/dL (<200); CREATININE 0.98 mg/dL (0.55-1.02); FREE T4 0.83 ng/dl (0.76-1.46); HDL CHOLESTEROL 64 mg/dl (40-60); LDL CHOLESTEROL 116 mg/dL (9-159); POTASSIUM 4.2 mmol/L (3.5-5.1); SGOT/AST 10 IU/L (3-35); SGPT/ALT 18 U/L (12-78); SODIUM 140 mmol/L (136-145); TOTAL PROTEIN 7.4 gm/dL (6.4-8.2); TRIGLYCERIDES 246 mg/dl (<150); VLDL CHOLESTEROL 49 mg/dL (6-40)
[2020-10-10 14:15] LABS: VITAMIN D, 25-HYDROXY 77.5 ng/mL (30-100)
== END | disposition home or self-care (01) ==
LOC: LAB 11:39
PROVIDERS: ATTEND Internal Medicine
DX: J44.9 Chronic obstructive pulmonary disease, unspecified (principal); M17.0 Bilateral primary osteoarthritis of knee; K29.00 Acute gastritis without bleeding; D52.9 Folate deficiency anemia, unspecified; D51.9 Vitamin B12 deficiency anemia, unspecified; R70.0 Elevated erythrocyte sedimentation rate; R53.81 Other malaise; I10 Essential (primary) hypertension; E55.9 Vitamin D deficiency, unspecified

== ENCOUNTER → 2021-04-18 | Outpatient (CLI) | payer OTHER ==
[2021-04-18 13:45] LABS: CREATININE 0.92 mg/dL (0.55-1.02)
== END | disposition home or self-care (01) ==
LOC: LAB 13:16 → CT 15:00
PROVIDERS: Radiology Diagnostic Radiology; ATTEND Nurse Practitioner Family
DX: N20.0 Calculus of kidney (principal); N28.1 Cyst of kidney, acquired; K57.30 Diverticulosis of large intestine without perforation or abscess without bleeding; I25.10 Atherosclerotic heart disease of native coronary artery without angina pectoris; K40.90 Unilateral inguinal hernia, without obstruction or gangrene, not specified as recurrent; K76.89 Other specified diseases of liver; Z96.641 Presence of right artificial hip joint

== ENCOUNTER → 2022-04-13 | Outpatient (CLI) | payer OTHER | END | disposition home or self-care (01) | LOC: MAMMO 10:30 | PROVIDERS: ATTEND Internal Medicine | DX: Z12.31 Encounter for screening mammogram for malignant neoplasm of breast (principal); N64.89 Other specified disorders of breast ==

== ENCOUNTER 2022-06-25 12:27 | Emergency (ER) | payer OTHER ==
[~2022-06-25] VITALS: Wt 68.0 kg
== END 2022-06-25 16:55 | disposition home or self-care (01) ==
LOC: ED 12:27
DX: S92.332A Displaced fracture of third metatarsal bone, left foot, initial encounter for closed fracture (principal); Z88.8 Allergy status to other drugs, medicaments and biological substances; Z79.899 Other long term (current) drug therapy; Z79.82 Long term (current) use of aspirin; Z90.710 Acquired absence of both cervix and uterus; Z98.890 Other specified postprocedural states; W18.39XA Other fall on same level, initial encounter; Y93.89 Activity, other specified; Y92.89 Other specified places as the place of occurrence of the external cause; Y99.8 Other external cause status

== ENCOUNTER → 2022-07-03 | Outpatient (CLI) | payer OTHER | END | disposition home or self-care (01) | LOC: RAD 08:36 | PROVIDERS: ATTEND Orthopaedic Surgery | DX: S92.902D Unspecified fracture of left foot, subsequent encounter for fracture with routine healing (principal); X58.XXXD Exposure to other specified factors, subsequent encounter ==

== ENCOUNTER → 2022-07-09 | Outpatient (CLI) | payer OTHER | END | disposition home or self-care (01) | LOC: ORTHO 02:17 | PROVIDERS: ATTEND Orthopaedic Surgery | DX: S92.315D Nondisplaced fracture of first metatarsal bone, left foot, subsequent encounter for fracture with routine healing (principal); S92.325D Nondisplaced fracture of second metatarsal bone, left foot, subsequent encounter for fracture with routine healing; S92.345D Nondisplaced fracture of fourth metatarsal bone, left foot, subsequent encounter for fracture with routine healing; S92.355D Nondisplaced fracture of fifth metatarsal bone, left foot, subsequent encounter for fracture with routine healing; X58.XXXD Exposure to other specified factors, subsequent encounter ==

== ENCOUNTER → 2022-07-20 | Outpatient (CLI) | payer OTHER | END | disposition home or self-care (01) | LOC: ORTHO 02:32 | PROVIDERS: ATTEND Orthopaedic Surgery | DX: S92.325D Nondisplaced fracture of second metatarsal bone, left foot, subsequent encounter for fracture with routine healing (principal); S92.315D Nondisplaced fracture of first metatarsal bone, left foot, subsequent encounter for fracture with routine healing; S92.355D Nondisplaced fracture of fifth metatarsal bone, left foot, subsequent encounter for fracture with routine healing; M20.12 Hallux valgus (acquired), left foot; X58.XXXD Exposure to other specified factors, subsequent encounter ==

== ENCOUNTER 2022-08-14 18:00 | Emergency (ER) | payer OTHER ==
[~2022-08-14] VITALS: Ht 167.6 cm; Wt 68.9 kg
[2022-08-14] MEDS ORDERED: PREDNISONE20 M1 PO (20:16)
[2022-08-14] MEDS ORDERED: ZITHROMAX250 MG PO (20:16)
== END 2022-08-14 20:31 | disposition home or self-care (01) ==
LOC: ED 18:00
DX: J40 Bronchitis, not specified as acute or chronic (principal); Z88.5 Allergy status to narcotic agent; Z90.710 Acquired absence of both cervix and uterus; Z98.42 Cataract extraction status, left eye; Z98.41 Cataract extraction status, right eye

== ENCOUNTER → 2023-01-04 | Outpatient (CLI) | payer OTHER ==
[~2023-01-04] MED LIST changes: +ACETAMINOPHEN500 M4 PO; +BUPROPION HYDR150 M3 PO; +CHLORTHALIDONE50 MG PO; +DILT-XR120 MG PO; +GABAPENTIN100 M2 PO; +GOOD NEIGHBOR L10 MG PO; +K-TAB20 MEQ PO; +MAGNESIUM400 M1 PO; +MAGOX 400400 MG PO; +MESALAMINE DR400 MG PO; +MONTELUKAST SOD10 MG PO; +Nystatin 100,000 UNI PO; +ONDANSETRON4 MG SL; +QUETIAPINE FUMA50 M1 PO; +ROPINIROLE HYDRO1 MG PO; +SIMVASTATIN40 MG PO; +TIZANIDINE HCL4 MG PO; +ZETIA10 MG PO; +ZITHROMAX250 MG PO
== END | disposition home or self-care (01) ==
LOC: ORTHO 01:34
PROVIDERS: ATTEND Orthopaedic Surgery
DX: M16.12 Unilateral primary osteoarthritis, left hip (principal); Z96.641 Presence of right artificial hip joint

== ENCOUNTER → 2023-02-05 | Outpatient (CLI) | payer MEDICARE, MEDICAID | END | disposition home or self-care (01) | LOC: RAD 01-22 10:30 | PROVIDERS: ATTEND Orthopaedic Surgery | DX: Z13.820 Encounter for screening for osteoporosis (principal); M81.0 Age-related osteoporosis without current pathological fracture; Z78.0 Asymptomatic menopausal state ==

== ENCOUNTER → 2023-04-28 | Outpatient (CLI) | payer MEDICARE, MEDICAID ==
[~2023-04-28] MED LIST changes: +CHLORTHALIDONE25 MG PO; +FARXIGA5 M1 PO; +FEROSUL325 M1 PO; +HYDROCODONE-AC1 EAC1 PO
== END | disposition home or self-care (01) ==
LOC: ORTHO 01:10
PROVIDERS: ATTEND Orthopaedic Surgery
DX: Z47.1 Aftercare following joint replacement surgery (principal)

== ENCOUNTER → 2023-05-26 | Outpatient (CLI) | payer MEDICARE, MEDICAID | END | disposition home or self-care (01) | LOC: ORTHO 01:15 | PROVIDERS: ATTEND Orthopaedic Surgery | DX: Z47.1 Aftercare following joint replacement surgery (principal) ==

== ENCOUNTER → 2023-07-07 | Outpatient (CLI) | payer MEDICARE, MEDICAID | END | disposition home or self-care (01) | LOC: ORTHO 00:58 | PROVIDERS: ATTEND Orthopaedic Surgery | DX: Z47.1 Aftercare following joint replacement surgery (principal); Z96.642 Presence of left artificial hip joint ==

== ENCOUNTER → 2023-10-13 | Outpatient (CLI) | payer MEDICARE, MEDICAID | END | disposition home or self-care (01) | LOC: ORTHO 01:21 | PROVIDERS: ATTEND Orthopaedic Surgery | DX: Z47.1 Aftercare following joint replacement surgery (principal); Z96.642 Presence of left artificial hip joint ==

== ENCOUNTER → 2023-10-25 | Outpatient (CLI) | payer MEDICARE, MEDICAID | END | disposition home or self-care (01) | LOC: ORTHO 02:47 | PROVIDERS: ATTEND Orthopaedic Surgery | DX: M17.0 Bilateral primary osteoarthritis of knee (principal); M11.262 Other chondrocalcinosis, left knee; Z47.1 Aftercare following joint replacement surgery ==

== ENCOUNTER → 2024-03-27 | Outpatient (CLI) | payer MEDICARE, MEDICAID | END | disposition home or self-care (01) | LOC: ORTHO 02:50 | PROVIDERS: ATTEND Orthopaedic Surgery | DX: Z47.1 Aftercare following joint replacement surgery (principal); M19.071 Primary osteoarthritis, right ankle and foot ==

== ENCOUNTER → 2024-05-24 | Outpatient (CLI) | payer MEDICARE, MEDICAID | END | disposition home or self-care (01) | LOC: ORTHO 10:03 | PROVIDERS: ATTEND Orthopaedic Surgery | DX: M17.12 Unilateral primary osteoarthritis, left knee (principal); M11.262 Other chondrocalcinosis, left knee; Z96.642 Presence of left artificial hip joint ==

== ENCOUNTER → 2025-04-18 | Outpatient (CLI) | payer MEDICARE, MEDICAID | END | disposition home or self-care (01) | LOC: ORTHO 11:57 | PROVIDERS: ATTEND Orthopaedic Surgery | DX: M17.12 Unilateral primary osteoarthritis, left knee (principal); M11.262 Other chondrocalcinosis, left knee; M25.462 Effusion, left knee; M25.762 Osteophyte, left knee ==

== ENCOUNTER → 2025-04-26 | Outpatient (CLI) | payer MEDICARE, MEDICAID | END | disposition home or self-care (01) | LOC: CT 15:18 | PROVIDERS: ATTEND Orthopaedic Surgery | DX: M17.12 Unilateral primary osteoarthritis, left knee (principal); M25.462 Effusion, left knee; M11.162 Familial chondrocalcinosis, left knee; M25.762 Osteophyte, left knee; M25.862 Other specified joint disorders, left knee ==

== ENCOUNTER → 2025-07-04 | Outpatient (CLI) | payer MEDICARE, MEDICAID | END | disposition home or self-care (01) | LOC: ORTHO 01:05 | PROVIDERS: ATTEND Orthopaedic Surgery | DX: M25.462 Effusion, left knee (principal); Z47.1 Aftercare following joint replacement surgery ==

== ENCOUNTER → 2025-08-01 | Outpatient (CLI) | payer MEDICARE, MEDICAID | END | disposition home or self-care (01) | LOC: ORTHO 02:59 | PROVIDERS: ATTEND Orthopaedic Surgery | DX: Z47.1 Aftercare following joint replacement surgery (principal) ==